=== PATIENT | male | born 1985 | race African-American/Black ===

== ENCOUNTER → 2016-11-05 | Outpatient (CLI) | payer BC ==
--- NOTE | ~2016-11-05 | MR112 ---
[facility] A Service of [facility] & [facility] RADIOLOGY TEXT RESULTS PATIENT: LUIS MIGUEL HART LOCATION: [facility] : 87 UNIT #: [id number] AGE: [address]: Abilio Moe MD SEX: M ORDER DR: [id number] [address] [address] [id number] O MR#: [id number] Acc #: [id number] NAME: LUIS MIGUEL HART : 1985 SEX: M STUDY DATE/TIME: 11/05/2016 17:39 UNIT: [facility] ROOM: STUDY DESCRIPTION: MR Lumbar WWo Contrast Attending Physician: Abilio Moe M.D. Referring Physician: Abilio Moe M.D. Ordering Physician: Abilio Moe M.D. Primary Care Physician: Abilio Moe M.D. MRI CENTER REPORT This report is preliminary unless electronic signature is present. EXAM Lumbar MRI with and without contrast. HISTORY Low back pain radiating toward the left for the past 2 weeks with limited range of motion. TECHNIQUE Multiplanar imaging lumbar spine was performed with short and long TR. 20 mL of MultiHance was used. COMPARISON Comparison scan available from 05/15/14. FINDINGS The L1-2 disc is normal. At L2-3 there is a left paracentral disc herniation. The herniated fragment extends slightly below the level of the L2-3 disc. This level shows worsening since the previous examination where a broad-based central disc protrusion was noted previously. At L3-4, the disc is degenerated. There is mild central disc bulging. This level shows slight improvement since the previous scan. At L4-5, the disc is degenerated with mild broad-based posterior disc bulging. This extends a little more to the left than to the right. There is relative left foraminal stenosis. This has not changed significantly since the previous exam. At L5-S1, the disc is degenerated. There is a left paracentral disc herniation that flattens and displaces the thecal sac and it displaces and slightly compresses the S1 root. This level shows worsening since the [facility] A Service of [facility] & [facility] RADIOLOGY TEXT RESULTS PATIENT: LUIS MIGUEL HART LOCATION: [facility] : 87 UNIT #: [id number] AGE: [address]: Abilio Moe MD SEX: M ORDER DR: previous exam. The conus is normal. There is no evidence of marrow edema and no paraspinous masses are seen. IMPRESSION 1. There are 2 new left-sided disc herniations since the previous examination, one at L2-3 that is fairly broad-based and causes moderate canal narrowing. This fragment flips down just below the L1-2 disc behind upper L2. The second new disc herniation is at L5-S1, to the left of midline. Both of these discs were degenerated on the previous scan but herniations are new. 2. Degenerative disc disease as described above at L3-4 and L4-5. At these levels, there is no evidence of disc herniation. The L3-4 protrusion has improved since the previous examination. The L4-5 disc protrusion is asymmetrically worse to the left than to the right and has not changed significantly. Dictated by... Jose A Mike M.D. THIS IS AN ELECTRONICALLY VERIFIED REPORT Jose A Mike M.D. at 11/06/2016 6:27 PM OSCAR/tracy TD: 11/06/2016 15:48 JOB #: [id number] MRI CENTER REPORT Page 1 of 1
== END | disposition home or self-care (01) ==
LOC: SMRI 17:01
DX: M51.26 Other intervertebral disc displacement, lumbar region (principal); M51.36 Other intervertebral disc degeneration, lumbar region
CPT/HCPCS: 72158; A9581